=== PATIENT | male | born 1975 | race Two or more races ===

== ENCOUNTER 2023-08-25 00:22 | Inpatient (IN) | payer OTHER ==
[~2023-08-25] VITALS: Ht 175.3 cm; Wt 102.5 kg
[2023-08-25 00:50] LABS: Basophils # (auto) 0 10 ^3/uL (0-0.2); Basophils % (auto) 0.2 % (0.0-2.0); Eosinophils # (auto) 0.1 10 ^3/uL (0-0.8); Eosinophils % (auto) 0.9 % (0.0-7.0); Hemoglobin 15.5 g/dL (13.5-17.5); Lymphocytes % (auto) 21.2 % (10.0-50.0); Mean Corpuscular Hemoglobin 30.7 pg (28.0-32.0); Mean Corpuscular Hgb Conc. 33.7 g/dL (32.0-36.0); Monocytes # (auto) 0.9 10 ^3/uL (0-1.3); Monocytes % (auto) 9.1 % (0.0-12.0); Neutrophils # (auto) 6.6 10 ^3/uL (1.6-8.6); Neutrophils % (auto) 68.6 % (37.0-80.0); Red Blood Cells 5.06 10^6/uL (4.5-5.90); Red Cell Distribution Width 13.9 % (11.8-14.3); White Blood Cell 9.7 10^3/uL (4.4-10.8)
[2023-08-25 01:04] LABS: Alanine Aminotransferase 49 U/L (7-40); Albumin 4.6 g/dL (3.2-4.8); Alkaline Phosphatase 58 U/L (46-116); Anion Gap 6 (5-15); Aspartate Aminotransferase 201 U/L (13-40); BUN/Creatinine Ratio 12.1 (10.0-20.0); Bilirubin, Total 0.4 mg/dL (0.2-1.0); Blood Urea Nitrogen 13 mg/dL (9-23); Calcium 9.1 mg/dL (8.7-10.4); Carbon Dioxide 26 mmol/L (20-30); Chloride 106 mmol/L (98-107); Glucose 116 mg/dL (74-106); INR 1.1 (0.9-1.15); Magnesium 1.9 mg/dL (1.6-2.6); Partial Thromboplastin Time 30.3 SEC (24.5-34.5); Potassium 3.8 mmol/L (3.5-5.1); Prothrombin Time 11.5 sec (9.3-11.8); Sodium 138 mmol/L (136-145); Total Protein 7.1 g/dL (5.7-8.2)
[2023-08-25] MEDS ORDERED: ASPirin-EC 325mg tab PO ONE (01:15)
[2023-08-25] MEDS ORDERED: ENOXAPARIN SOD 80 MG/0.8ML SYRINGE SC ONE (01:15)
[2023-08-25] MEDS ORDERED: MORPHINE SULFATE 4 MG/ML SYR/VIAL IV ONE (01:30)
[2023-08-25] MEDS ORDERED: ONDANSETRON HCL 4 MG/2 ML VIAL IV ONE (01:30)
[2023-08-25] MEDS ORDERED: ONDANSETRON HCL 4 MG/2 ML VIAL IV PRN (02:45)
[2023-08-25] MEDS: HYDROcodone-ACET 7.5/325MG TAB PO PRN ×4 (03:38→20:08)
[2023-08-25 06:35] VITALS: PULSE 95; RESP 16; O2SAT 96
[2023-08-25] MEDS ORDERED: IOHEXOL 350 MG/ML 100ML IJ ONE (07:29)
[2023-08-25 07:53] LABS: Lipase 39 U/L (12-53)
[2023-08-25 08:00] VITALS: PULSE 78; RESP 17; O2SAT 96
[2023-08-25 08:18] LABS: Amylase 47 U/L (30-118)
[2023-08-25] MEDS: METOPROLOL TARTRATE 25 MG TAB PO SCH (08:21)
[2023-08-25] MEDS: PANTOPRAZOLE 40 MG TAB PO SCH (08:22)
[2023-08-25] MEDS: D5W/ SOD CHL 0.9%/KCL 20MEQ 1,000 ML IV SCH (09:47)
[2023-08-25] MEDS: LISINOPRIL 5 MG TAB PO SCH (10:00)
[2023-08-25] MEDS ORDERED: ENOXAPARIN SOD 40 MG/0.4 ML SYRINGE SC SCH (10:00)
[2023-08-25] MEDS ORDERED: ASPirin 81 mg TAB PO SCH (10:00)
[2023-08-25 10:39] LABS: Amphetamine Screen, Urine Neg (NEGATIVE); Barbiturate Scree,Urine Neg (NEGATIVE); Benzodiazephine Screen, Urine Neg (NEGATIVE); Cannabinoid Screen, Urine Neg (NEGATIVE); Cocaine Screen, Urine Neg (NEGATIVE); Opiate Scree,Urine Neg (NEGATIVE); Phencyclidine Screen, Urine Neg (NEGATIVE)
[2023-08-25] MEDS: ASPirin-EC 325mg tab PO SCH (12:00)
[2023-08-25 19:50] VITALS: O2SAT 95
[2023-08-25] MEDS ORDERED: ACETAMINOPHEN 325 MG TAB PO PRN (21:45)
[2023-08-25 23:43] VITALS: PULSE 89; RESP 17; O2SAT 2
[2023-08-26] VITALS (11 sets, daily range): BP systolic 106–127; BP diastolic 66–80; PULSE 94–115; RESP 16–26; TEMP 98.3–99.6; O2SAT 90–98
[2023-08-26] MEDS: HYDROcodone-ACET 7.5/325MG TAB PO PRN ×2 (00:33→03:58)
[2023-08-26] MEDS: ENOXAPARIN SOD 100 MG/1 ML SYRINGE SC SCH ×2 (03:58→10:17)
[2023-08-26] MEDS: D5W/ SOD CHL 0.9%/KCL 20MEQ 1,000 ML IV SCH ×2 (04:01→23:38)
[2023-08-26 08:19] LABS: Erythrocyte Sedimentation Rate 14 mm/hr (0-20)
[2023-08-26] MEDS ORDERED: ADENOSINE 87 MG in GIVE UN-DILUTED 0 ML IV ONE (08:30)
[2023-08-26 09:06] LABS: Hepatitis B Core Total AB Negative (Negative)
[2023-08-26] MEDS: cefTRIAXone 1GM/50ML D5W 50 ML IV SCH (10:17)
[2023-08-26] MEDS: PANTOPRAZOLE 40 MG TAB PO SCH (10:17)
[2023-08-26] MEDS: METOPROLOL TARTRATE 25 MG TAB PO SCH (10:17)
[2023-08-26] MEDS: LISINOPRIL 5 MG TAB PO SCH (10:18)
[2023-08-26] MEDS: ASPirin-EC 325mg tab PO SCH (10:19)
[2023-08-26] MEDS: COLCHICINE 0.6 MG CAP PO SCH ×2 (10:19→20:43)
[2023-08-26 12:40] LABS: Hepatitis A Total Antibody Positive (Negative)
[2023-08-26 12:41] LABS: Hepatitis B Surface Antibody Negative (Negative); Hepatitis B Surface Antigen Negative (Negative); Hepatitis C Antibody Negative (Negative)
[2023-08-26] MEDS ORDERED: MORPHINE SULFATE INJ 2 MG/ml SYRG IV PRN (15:15)
[2023-08-26] MEDS ORDERED: IODIXANOL 320MG/ML 100ML BTL IV ONE (17:44)
[2023-08-26] MEDS ORDERED: LIDOCAINE 2%HCL (LOCAL ANESTH.) INJ 20ML MDV ONE (17:44)
[2023-08-26] MEDS ORDERED: ANGIOMAX 250 MG VIAL IV ONE (17:56)
[2023-08-26] MEDS ORDERED: MIDAZOLAM HCL 2MG/2ML 2ml VIAL (1mg/ml) ONE (17:56)
[2023-08-26] MEDS ORDERED: fentaNYL CITRATE 100 MCG/2 ML VL ONE (17:56)
[2023-08-26] MEDS ORDERED: SODIUM CHL 0.9% 0 ML ONE (17:57)
[2023-08-26] MEDS ORDERED: VERAPAMIL 2.5MG/ML INJ 2ML VIAL IV ONE (18:05)
[2023-08-27] VITALS (7 sets, daily range): BP systolic 101–145; BP diastolic 65–98; PULSE 97–120; RESP 16–22; TEMP 98.2–98.7; O2SAT 92–98
[2023-08-27] MEDS: HYDROcodone-ACET 7.5/325MG TAB PO PRN (05:08)
[2023-08-27] MEDS: cefTRIAXone 1GM/50ML D5W 50 ML IV SCH (10:55)
[2023-08-27] MEDS: ASPirin-EC 325mg tab PO SCH (10:55)
[2023-08-27] MEDS: COLCHICINE 0.6 MG CAP PO SCH ×2 (10:56→21:14)
[2023-08-27] MEDS: PANTOPRAZOLE 40 MG TAB PO SCH (10:57)
[2023-08-27] MEDS: LISINOPRIL 5 MG TAB PO SCH (10:58)
[2023-08-27] MEDS: METOPROLOL TARTRATE 25 MG TAB PO SCH (10:59)
[2023-08-27] MEDS: D5W/ SOD CHL 0.9%/KCL 20MEQ 1,000 ML IV SCH (21:16)
[2023-08-28] VITALS (7 sets, daily range): BP systolic 103–118; BP diastolic 68–82; PULSE 81–94; RESP 16–18; TEMP 98.1–98.9; O2SAT 94–96
[2023-08-28] MEDS: HYDROcodone-ACET 7.5/325MG TAB PO PRN ×2 (00:59→13:16)
[2023-08-28] MEDS: cefTRIAXone 1GM/50ML D5W 50 ML IV SCH (09:18)
[2023-08-28] MEDS: ASPirin-EC 325mg tab PO SCH (09:18)
[2023-08-28] MEDS: PANTOPRAZOLE 40 MG TAB PO SCH (09:18)
[2023-08-28] MEDS: COLCHICINE 0.6 MG CAP PO SCH ×2 (09:18→21:10)
[2023-08-28] MEDS: LISINOPRIL 5 MG TAB PO SCH (09:19)
[2023-08-28] MEDS: METOPROLOL TARTRATE 25 MG TAB PO SCH (09:19)
[2023-08-28] MEDS: D5W/ SOD CHL 0.9%/KCL 20MEQ 1,000 ML IV SCH (15:30)
[2023-08-29] VITALS (7 sets, daily range): BP systolic 109–122; BP diastolic 71–84; PULSE 79–91; RESP 18–21; TEMP 98.3–98.5; O2SAT 92–98
[2023-08-29] MEDS: ASPirin-EC 325mg tab PO SCH (09:34)
[2023-08-29] MEDS: PANTOPRAZOLE 40 MG TAB PO SCH (09:34)
[2023-08-29] MEDS: COLCHICINE 0.6 MG CAP PO SCH ×2 (09:35→21:14)
[2023-08-29] MEDS: METOPROLOL TARTRATE 25 MG TAB PO SCH (09:39)
[2023-08-29] MEDS: LISINOPRIL 5 MG TAB PO SCH (09:39)
[2023-08-29] MEDS: ENOXAPARIN SOD 40 MG/0.4 ML SYRINGE SC SCH (09:40)
[2023-08-29] MEDS: cefTRIAXone 1GM/50ML D5W 50 ML IV SCH (09:40)
[2023-08-29] MEDS: D5W/ SOD CHL 0.9%/KCL 20MEQ 1,000 ML IV SCH ×2 (11:30→18:51)
[2023-08-30] VITALS (8 sets, daily range): BP systolic 18–113; BP diastolic 64–79; PULSE 69–98; RESP 12–96; TEMP 98.1–98.6; O2SAT 93–97
[2023-08-30] MEDS: HYDROcodone-ACET 7.5/325MG TAB PO PRN ×2 (01:29→01:30)
[2023-08-30] MEDS: COLCHICINE 0.6 MG CAP PO SCH ×2 (09:16→21:29)
[2023-08-30] MEDS: ASPirin-EC 325mg tab PO SCH (09:17)
[2023-08-30] MEDS: PANTOPRAZOLE 40 MG TAB PO SCH (09:17)
[2023-08-30] MEDS: METOPROLOL TARTRATE 25 MG TAB PO SCH (09:17)
[2023-08-30] MEDS: ENOXAPARIN SOD 40 MG/0.4 ML SYRINGE SC SCH (09:18)
[2023-08-30] MEDS: LISINOPRIL 5 MG TAB PO SCH (09:18)
[2023-08-30] MEDS: cefTRIAXone 1GM/50ML D5W 50 ML IV SCH (09:18)
[2023-08-30] MEDS: D5W/ SOD CHL 0.9%/KCL 20MEQ 1,000 ML IV SCH (20:08)
[2023-08-30] MEDS ORDERED: COLC0.6T56 PO (22:14)
== END 2023-08-31 04:58 | DRG 286 ==
LOC: EEVIPCON 00:22 → EDBD 00:22 → ER 00:22 → TELE 02:53 → TELE-WESTW 23:14
PROVIDERS: ADMIT Internal Medicine; ATTEND Internal Medicine
PROC: 4A023N7 Measurement of Cardiac Sampling and Pressure, Left Heart, Percutaneous Approach (ICD-10-PCS; principal; 2023-08-26)
PROC: B211YZZ Fluoroscopy of Multiple Coronary Arteries using Other Contrast (ICD-10-PCS; 2023-08-26)
PROC: B215YZZ Fluoroscopy of Left Heart using Other Contrast (ICD-10-PCS; 2023-08-26)
DX: I11.0 Hypertensive heart disease with heart failure (principal); I50.31 Acute diastolic (congestive) heart failure; I31.9 Disease of pericardium, unspecified; I51.4 Myocarditis, unspecified; R07.9 Chest pain, unspecified; K75.9 Inflammatory liver disease, unspecified; E78.00 Pure hypercholesterolemia, unspecified; R79.89 Other specified abnormal findings of blood chemistry
CPT/HCPCS: 36415; 71045; 71275; 78452; 80053; 80307; 82150; 83690; 83735; 83880; 84484; 85025; 85610; 85652; 85730; 86141; 86704; 86706; 86708; 86803; 87040; 87081; 87340; 93005; 93017; 93306; 93458; 99152; 99291; G0378; J0153; J0696; J2250; J2405; Q9967